=== PATIENT | male | born 1995 | race Caucasian/White ===

== ENCOUNTER 2017-01-08 00:42 | Emergency (ER) | payer OTHER ==
[~2017-01-08] VITALS: Ht 175.3 cm; Wt 65.5 kg
--- NOTE | 2017-01-08 10:00 | REP ---
Clinical: Palpable ventral / epigastric mass. Technique: soto scale ultrasound using linear high frequency transducer with color evaluation. Findings: A midline sub-xyphoid fat-containing defect consistent with nonreducible ventral hernia. The defect measures roughly 5.4 mm diameter while the protruding fat into the subcutaneous tissues measures roughly 2.5 x 2.2 x 0.5 cm and is unchanged on Valsalva and non-reducible. Impression: Small sub-xyphoid none reducible fat containing hernia. Signed by Simba Groves MD 01/08/2017 07:36 A
[2017-01-08 10:54] LABS: MEAN CORPUSCULAR HEMOGLOBIN 29.3 pg (27.0-33.0); MEAN CORPUSCULAR HGB CONC 34.2 g/dl (32.0-36.5); MEAN CORPUSCULAR VOLUME 85.7 fl (80.0-96.0); PLATELET COUNT, AUTOMATED 232 10^3/uL (150-450); RED CELL DISTRIBUTION WIDTH 12.9 % (11.5-14.5); WHITE BLOOD COUNT 5.5 10^3/uL (4.0-10.0)
[2017-01-08 10:55] LABS: ADD MANUAL DIFFER YES; DIFF SLIDE NUMBER 212; POSITIVE MORPH POS FLAG
[2017-01-08 11:04] LABS: INR 1.05
[2017-01-08 11:17] LABS: BANDS 2 % (< 11); BASOPHILS 1 % (0-4)
[2017-01-08 11:18] LABS: ANION GAP 5 MEQ/L (8-16); BLOOD UREA NITROGEN 14 MG/DL (7-18); CALCIUM LEVEL 8.9 MG/DL (8.5-10.1); CARBON DIOXIDE LEVEL 29 MEQ/L (21-32); CHLORIDE LEVEL 106 MEQ/L (98-107); GLUCOSE, FASTING 98 MG/DL (70-105); POTASSIUM SERUM 4.2 MEQ/L (3.5-5.1); SODIUM LEVEL 140 MEQ/L (136-145)
[2017-01-08 11:43] VITALS: BP 127/80
--- NOTE | 2017-01-08 20:55 | ER ---
DATE OF ER CONSULTATION: 01/08/2017 REASON FOR CONSULTATION: Incarcerated epigastric hernia. HISTORY OF PRESENT ILLNESS: The patient is a pleasant 21-year-old active [employer] who presented to the emergency department complaining of epigastric pain with a palpable subcutaneous nodule. The patient reported that he had never noticed a bump in the epigastrium before the afternoon of January 07. He reported that on the afternoon of the he had performed an abdominal muscle exercise program. At about 02:00 p.m. on the he noticed a small bump with some soreness in the epigastrium. During the course of the late afternoon and evening the discomfort increased across his upper abdomen. The nodule became more prominent. He presented to the emergency department shortly after midnight on the morning of January 08. He was not actually seen by a provider until close to 06:00 a.m. on the . At that point, he was noted to have a small nodule in the epigastrium. The PA attempted to reduce this without success and an ultrasound was obtained which showed a herniation of fatty tissue through a small fascial defect. I was subsequently consulted to evaluate the patient. The patient does report that during the course of waiting in the emergency department the nodule has actually gotten much smaller in size and his discomfort has largely resolved, though he remains tender in that area. ALLERGIES: The patient has NO KNOWN DRUG ALLERGIES. MEDICATIONS: The patient is on no regular prescription or [id number] medications. PAST MEDICAL HISTORY: Unremarkable. PAST SURGICAL HISTORY: Is also negative. SOCIAL HISTORY: He is a nonsmoker and denies significant alcohol intake. FAMILY HISTORY: Noncontributory. REVIEW OF SYSTEMS: Negative in detail. PHYSICAL EXAMINATION: Reveals a thin pleasant young man lying quietly on the hospital stretcher. He is alert, oriented and cooperative. His most recent vital signs show a temperature of 97.4 with a pulse of 65 and a blood pressure of 123/68. Skin is warm and dry. Sclerae are anicteric. Neck is supple. Heart and lung exams are unremarkable. Abdomen is thin and flat. He has a small palpable subcutaneous nodule approximately midway between the tip of the xyphoid and the top of the umbilicus. This nodule is located along the midline. It is smooth and about a centimeter to centimeter and a half in size and without significant tenderness. This does not seem to reduce with gentle pressure. There is no sign of significant umbilical hernia and the abdomen is otherwise soft and nontender without appreciable mass. Extremities are without edema. Ultrasound was reviewed and showed a fascial defect 5-6 mm in diameter with only some fibrofatty tissue presenting. IMPRESSION: Small epigastric hernia, previously incarcerated, but now largely reduced. RECOMMENDATION: At this point, the patient does not appear to require urgent or emergent surgery for this. He is comfortable and the hernia has diminished in size. I did advise him that this should be repaired to prevent recurrent problems like he had today. He can be discharged from the emergency department, but should probably avoid strenuous physical activity for now. I would be happy to see him back in my office for scheduling of an epigastric herniorrhaphy. Once he has acquired the appropriate authorization from the [facility] we can see him in the office and plan surgery. If he has a recurrence of incarceration then he should return to the emergency department.
== END 2017-01-08 11:44 | disposition home or self-care (01) ==
LOC: M ED 00:42
DX: K43.9 Ventral hernia without obstruction or gangrene (principal)

== ENCOUNTER 2017-02-23 09:37 | Day surgery (SDC) | payer OTHER ==
[2017-02-23] MEDS: LR 1,000 ML IV (10:28)
[2017-02-23] MEDS ORDERED: NEOSTIGMINE 10 MG/10 ML VIAL (J2710) As Ordered (11:45)
[2017-02-23] MEDS ORDERED: fentaNYL 250 MCG/5 ML INJECTION (J3010) As Ordered (11:45)
[2017-02-23] MEDS ORDERED: ROCURONIUM BROMIDE 50 MG/5 ML VIAL As Ordered ×2 (11:45)
[2017-02-23] MEDS ORDERED: PROPOFOL 200 MG/20 ML VIAL As Ordered (11:45)
[2017-02-23] MEDS ORDERED: ONDANSETRON 4MG/2ML VIAL (J2405) As Ordered (11:45)
[2017-02-23] MEDS ORDERED: MIDAZOLAM INJ 2 MG/2 ML VIAL (J2250) As Ordered (11:45)
[2017-02-23] MEDS ORDERED: LIDOCAINE 2% INJ 100 MG/5 ML SDV (FOR ANES.) As Ordered (11:45)
[2017-02-23] MEDS ORDERED: KETOROLAC 60 MG/2 ML VIAL (J1885) As Ordered (11:45)
[2017-02-23] MEDS ORDERED: METOCLOPRAMIDE INJ 10MG/2ML VIAL (J2765) As Ordered (11:45)
[2017-02-23] MEDS ORDERED: GLYCOPYRROLATE INJ 0.2 MG/ML 2 ML VIAL As Ordered ×2 (11:46)
[2017-02-23] MEDS: BUPIVACAINE HCL 0.25% 30 ML VIAL As Ordered (11:51)
[2017-02-23] MEDS ORDERED: ePHEDrine SULFATE 25 MG/5 ML(5MG/ML) SYRINGE As Ordered (12:04)
[2017-02-23] MEDS ORDERED: fentaNYL 100 MCG/2 ML INJECTION (J3010) IV (13:00)
[2017-02-23] MEDS ORDERED: ONDANSETRON 4MG/2ML VIAL (J2405) IV (13:00)
[2017-02-23] MEDS ORDERED: PERCOCET 5MG/325MG TAB PO (13:00)
[2017-02-23] MEDS ORDERED: HYDROmorphone HCL 1 MG/ML SYRINGE (J1170) IV (13:00)
[2017-02-23] MEDS ORDERED: LR 1,000 ML IV (13:00)
[2017-02-23] MEDS ORDERED: ACETAMINOPHEN TAB 650MG DOSE (2X325MG) PO (13:00)
[2017-02-23] MEDS ORDERED: NORCO, ANEXSIA 5/325MG TABLET (HYDROcodone/ACETAMINOPHEN) PO (13:00)
[2017-02-23] MEDS ORDERED: IBUPROFEN 600 MG TAB PO (18:00)
== END 2017-02-23 14:35 | disposition home or self-care (01) ==
LOC: M SDC 09:37
DX: K43.9 Ventral hernia without obstruction or gangrene (principal); K21.9 Gastro-esophageal reflux disease without esophagitis
CPT/HCPCS: 49560

== ENCOUNTER 2017-09-08 20:58 | Day surgery (SDC) | payer OTHER ==
[2017-09-08 21:45] LABS: BASO % 0.2 % (0.0-1.0); EOS % 0.2 % (0.0-3.0); HEMOGLOBIN 15.9 g/dl (13.5-17.5); IMMATURE GRANULOCYTE % 0.4 % (0-3.0); LYMPH # 1.3 10^3/uL (1.5-6.5); LYMPH % 10.1 % (24.0-44.0); MEAN CORPUSCULAR HEMOGLOBIN 29.4 pg (27.0-33.0); MEAN CORPUSCULAR HGB CONC 34.6 g/dl (32.0-36.5); MONO # 0.6 10^3/uL (0.0-0.8); MONO % 4.7 % (0.0-5.0); NEUTROPHILS # 10.7 10^3/uL (1.8-7.7); NEUTROPHILS % 84.4 % (36.0-66.0); PLATELET COUNT, AUTOMATED 202 10^3/uL (150-450); RED BLOOD COUNT 5.41 10^6/uL (4.30-6.10); RED CELL DISTRIBUTION WIDTH 11.9 % (11.5-14.5); WHITE BLOOD COUNT 12.6 10^3/uL (4.0-10.0)
[2017-09-08] MEDS ORDERED: MORPHINE 4 MG/ML 1ML VIAL/SYRINGE (J2270) IV (21:45)
[2017-09-08] MEDS ORDERED: BACITRACIN PWD 50,000 UNITS VIAL As Ordered (22:04)
[2017-09-08] MEDS ORDERED: BACITRACIN OINT 30GM As Ordered (22:04)
[2017-09-08 22:07] LABS: ANION GAP 7 MEQ/L (8-16); BLOOD UREA NITROGEN 20 MG/DL (7-18); CALCIUM LEVEL 9.2 MG/DL (8.5-10.1); CARBON DIOXIDE LEVEL 31 MEQ/L (21-32); CHLORIDE LEVEL 103 MEQ/L (98-107); GLUCOSE, FASTING 132 MG/DL (70-100); SODIUM LEVEL 141 MEQ/L (136-145)
[2017-09-08] MEDS ORDERED: PROPOFOL 200 MG/20 ML VIAL As Ordered (22:08)
[2017-09-08] MEDS ORDERED: ROCURONIUM BROMIDE 50 MG/5 ML VIAL As Ordered (22:09)
[2017-09-08] MEDS ORDERED: LIDOCAINE 2% INJ 100 MG/5 ML SDV (FOR ANES.) As Ordered (22:09)
[2017-09-08] MEDS ORDERED: SUCCINYLCHOLINE 100 MG/5 ML SYRINGE (J0330) As Ordered (22:09)
[2017-09-08] MEDS ORDERED: MIDAZOLAM INJ 2 MG/2 ML VIAL (J2250) As Ordered (22:15)
[2017-09-08] MEDS ORDERED: ceFAZolin 1GM INJ (J0690 PER 500MG) As Ordered (22:16)
[2017-09-08] MEDS ORDERED: fentaNYL 100 MCG/2 ML INJECTION (J3010) As Ordered ×2 (22:16→23:05)
[2017-09-08] MEDS ORDERED: METOCLOPRAMIDE INJ 10MG/2ML VIAL (J2765) As Ordered (22:18)
[2017-09-08] MEDS ORDERED: dexameTHASONE 4 MG/ML 1ML VIAL (J1100) As Ordered (22:18)
[2017-09-08] MEDS: ceFAZolin SOD 1 GM in D5W MINI-BAG PLUS 50 ML IV (22:30)
[2017-09-08] MEDS ORDERED: ONDANSETRON 4MG/2ML VIAL (J2405) As Ordered (23:05)
[2017-09-08] MEDS: BUPIVACAINE HCL 0.25% 30 ML VIAL As Ordered (23:44)
[2017-09-09] MEDS: LR 1,000 ML IV (00:05)
[2017-09-09] MEDS ORDERED: ONDANSETRON 4MG/2ML VIAL (J2405) IV (00:30)
[2017-09-09] MEDS ORDERED: PERCOCET 5MG/325MG TAB PO ×3 (00:30)
[2017-09-09] MEDS ORDERED: HYDROMORPHONE HCL 0.5 MG/ 0.5 ML SYRINGE (J1170 PER 1) IV (00:30)
[2017-09-09] MEDS ORDERED: fentaNYL 100 MCG/2 ML INJECTION (J3010) IV (00:30)
[2017-09-09] MEDS: SENOKOT S TAB PO (02:22)
[2017-09-09 18:39] LABS: KETONE, URINE AUTO RFX NEGATIVE (NEGATIVE); LEUKOCYTE ESTERASE UR AUTO RFX NEGATIVE (NEGATIVE); MUCUS, URINE RFX SMALL (NEGATIVE); NITRITE, URINE AUTO RFX NEGATIVE (NEGATIVE); RBC, URINE AUTO RFX 1 /HPF (0-3); SQUAM EPITHELIAL CELL UR AURFX 0 /HPF (0-6); WBC, URINE AUTO RFX 3 /HPF (0-3)
[2017-09-09 20:14] LABS: CHLAMYDIA DNA AMPLIFICATION NEGATIVE (NEGATIVE); GC DNA AMPLIFICATION NEGATIVE (NEGATIVE)
== END 2017-09-09 12:15 | disposition home or self-care (01) ==
LOC: M MS5PR 09-09 01:00 → M SDC 09-09 12:15 → M ED 20:58 → M SDC 22:00
DX: S39.94XA Unspecified injury of external genitals, initial encounter (principal); W22.8XXA Striking against or struck by other objects, initial encounter; Y93.89 Activity, other specified; Y92.89 Other specified places as the place of occurrence of the external cause; Y99.8 Other external cause status; K21.9 Gastro-esophageal reflux disease without esophagitis
CPT/HCPCS: 54700